=== PATIENT | male | born 1970 | race American Indian/Alaskan Native ===

== ENCOUNTER 2018-08-14 05:20 | Emergency (ER) | payer MEDICAID ==
[2018-08-14 06:42] LABS: CHLORIDE,CL 70 mmol/L (101-111)
[2018-08-14 06:48] LABS: ANION GAP 25.4; SODIUM,NA 112 mmol/L (135-145)
[2018-08-14] MEDS ORDERED: Potassium Chloride 20 MEQ in Premix Bag 1 BAG IV ONE (07:02)
--- NOTE | 2018-08-14 07:11 | EDM.PDOC ---
"ED HPI GENERAL MEDICAL PROBLEM - General Chief Complaint: Neurological Problem Stated Complaint: AMBULANCE/UNKNOWN Time Seen by Provider: 08/14/18 05:30 Source of Information: Reports: Patient, EMS, Family History Limitations: Reports: Altered Mental Status - History of Present Illness INITIAL COMMENTS - FREE TEXT/NARRATIVE: ED via [facility] with report of seizure. No prior hx. Patient reported to have recent cold sx, vomiting past few days. Weak. assisting into bed and stiffened up, lasted approximately 30 seconds. EMS noted postictal state on arrival. Confusion improving enroute. Patient alert, oreiented person pace on arrival, slow responses - Related Data Allergies Allergy/AdvReac Type Severity Reaction Status Date / Time No Known Allergies Allergy Verified 08/14/18 05:30 Home Meds: Home Meds Lisinopril 20 mg PO DAILY 08/14/18 [History] metFORMIN [Glucophage] 850 mg PO WITHDINNER 08/14/18 [History] traZODone HCl [Trazodone HCl] 50 mg PO DAILY 08/14/18 [History] Past Medical History Cardiovascular History: Reports: Hypertension Endocrine/Metabolic History: Reports: Diabetes, Type II Social & Family History - Tobacco Use Smoking Status *Q: Never Smoker Second Hand Smoke Exposure: No - Recreational Drug Use Recreational Drug Use: No ED ROS GENERAL - Review of Systems Review Of Systems: ROS reveals no pertinent complaints other than HPI. Constitutional: Reports: Weakness HEENT: Reports: No Symptoms Respiratory: Reports: Shortness of Breath, Cough Cardiovascular: Reports: Dyspnea on Exertion Endocrine: Reports: Fatigue GI/Abdominal: Reports: Vomiting Musculoskeletal: Reports: Foot Pain, Muscle Pain Skin: Reports: No Symptoms Neurological: Reports: Seizure, Difficulty Walking (past 2-3 weeks), Weakness - Physical Exam Exam: See Below Exam Limited By: No Limitations General Appearance: Alert, Mild Distress, Obese Eye Exam: Bilateral Eye: EOMI Ears: Normal External Exam, Normal TMs Nose: Normal Inspection Throat/Mouth: Evidence of Tongue Biting. No: Normal Lips (bruising lower left ) Neck: Normal Inspection, Supple, Full Range of Motion Respiratory/Chest: No Respiratory Distress, Lungs Clear, Decreased Breath Sounds , Wheezing (intermittent, left upper clears with cough) Cardiovascular: Normal Peripheral Pulses, Regular Rate, Rhythm, No Edema GI/Abdominal: Normal Bowel Sounds, Soft Neuro Exam (Abbreviated): Alert, Oriented, Normal Cognition, Slow to Respond Extremities: Pallor. No: Pedal Edema Skin Exam: Warm, Dry, Intact, Pallor Course - Vital Signs Last Recorded V/S: Last Vital Signs Temp 97.3 F 08/14/18 05:21 Pulse 89 08/14/18 05:21 Resp 18 08/14/18 05:21 BP 162/93 H 08/14/18 05:21 Pulse Ox 94 L 08/14/18 05:21 - Orders/Labs/Meds Orders: Active Orders 24 hr Category Date Time Status EKG Documentation Completion [RC] URGENT Care 08/14/18 05:14 Active Labs: Laboratory Tests 08/14/18 08/14/18 08/14/18 Range/Units 06:15 06:15 06:15 WBC 5.4 (5.0-10.0) 10^3/uL RBC 4.46 L (4.6-6.2) 10^6/uL Hgb 13.2 L D (14.0-18.0) g/dL Hct 35.8 L (40.0-54.0) % MCV 80.3 D (80-100) fL MCH 29.6 (27.0-34.0) pg MCHC 36.9 H (33.0-35.0) g/dL Plt Count 25 L* D (150-450) 10^3/uL Neut % (Auto) 88.8 H (42.2-75.2) % Lymph % (Auto) 7.2 L (20.5-50.1) % [place] % (Auto) 3.6 (2-8) % Eos % (Auto) 0.0 L (1.0-3.0) % Baso % (Auto) 0.4 (0.0-1.0) % PT 16.0 H (9.0-12.0) SEC INR 1.6 H (0.9-1.2) Sodium 112 L* D (135-145) mmol/L Potassium 2.4 L D (3.6-5.0) mmol/L Chloride 70 L D (101-111) mmol/L Carbon Dioxide 19.0 L (21.0-31.0) mmol/L Anion Gap 25.4 BUN 3 L (7-18) mg/dL Creatinine 0.7 (0.6-1.3) mg/dL Est Cr Clr Drug Dosing 141.65 mL/min Estimated GFR (MDRD) > 60 BUN/Creatinine Ratio 4.28 Glucose 301 H (74-105) mg/dL Calcium 7.3 L D (8.4-10.2) mg/dl Total Bilirubin 5.7 H (0.2-1.0) mg/dL AST 270 H (10-42) IU/L ALT 84 H (10-60) IU/L Alkaline Phosphatase 334 H (42-121) IU/L Troponin I 0.18 H* (0.00-0.02) ng/ml Total Protein 7.2 (6.7-8.2) g/dl Albumin 2.2 L (3.2-5.5) g/dl Globulin 5.0 Albumin/Globulin Ratio 0.44 Amylase 28 (28-100) U/L Meds: Medications Discontinued Medications Generic Name Dose Route Start Last Admin Trade Name Freq PRN Reason Stop Dose Admin Potassium Chloride 20 meq/ 100 mls @ 50 mls/hr 08/14/18 07:02 08/14/18 07:09 Premix IV 08/14/18 09:01 50 mls/hr ONETIME ONE Administration - Radiology Interpretation Free Text/Narrative:: [facility] Final Radiology Report Call: [phone] assistance Online chat: [email or web address] Name: MARYLIN CANO Age: 48Years M Date: 08/14/2018 SSN: -- : 1970 Study: CT HEAD WO Requesting Physician: MARY THOMPSON Images: 149 Addl Studies: Provided Clinical History: Contrast: Without Contrast Medium: Contrast Amount: Contrast Method: Page 1 of 2 EXAM: CT Head Without Contrast EXAM DATE/TIME: 08/14/2018 5:41 AM CLINICAL HISTORY: 48 years old, male; Signs and symptoms; Other: Seizure TECHNIQUE: Axial computed tomography images of the head/brain without contrast. All CT scans at this facility use at least one of these dose optimization techniques: automated exposure control; mA and/or kV adjustment per patient size (includes targeted exams where dose is matched to clinical indication); or iterative reconstruction. Coronal and sagittal reformatted images were created and reviewed. COMPARISON: No relevant prior studies available. FINDINGS: Brain: No CT evidence of acute cortical infarct. No mass effect. No edema. Old lacunar infarct lateral right thalamus. There is no evidence of parenchymal hemorrhage. No extra -axial collections. No subarachnoid blood. Ventricles: The ventricular system is midline and appropriate in size. No hydrocephalus. Bones/joints: There is no evidence of acute fracture. Sinuses: Prominent mucosal changes in the left maxillary sinus. Mild mucosal changes in the right maxillary sinus. Please correlate clinically. Mastoid air cells: Imaged portions of the mastoid air cells are aerated. Mastoids are free of acute inflammatory change. Orbits: No suspicious orbital mass. Soft tissues: No large soft tissue superficial hematoma. Please correlate clinically. MARYLIN CANO | Final Radiology Report CONFIDENTIALITY STATEMENT This report is intended only for use by the referring physician, and only in accordance with law. If you received this in error, call [phone]. Page 2 of 2 Vasculature: There are atherosclerotic changes within the anterior and posterior circulations. IMPRESSION: No evidence of an acute intracranial injury. No intracranial hemorrhage. No evidence of acute cortical infarct. Old lacunar infarct lateral right thalamus. No mass effect. No edema. Followup as clinically warranted. Prominent mucosal changes in the left maxillary sinus. Mild mucosal changes in the right maxillary sinus. Please correlate clinically. Nonemergent/chronic findings as described in the body of report. Thank you for allowing us to participate in the care of your patient. Name: MARYLIN CANO Age: 48Years M Date: 08/14/2018 SSN: -- : 1970 Study: XR CHEST 1 VIEW Requesting Physician: MARY THOMPSON Images: 1 Addl Studies: Provided Clinical History: Contrast: Contrast Medium: Contrast Amount: Contrast Method: Page 1 of 2 EXAM: XR Chest, 1 View EXAM DATE/TIME: 08/14/2018 5:34 AM CLINICAL HISTORY: 48 years old, male; Signs and symptoms; Other: Seizure TECHNIQUE: XR of the chest, 1 view. COMPARISON: No relevant prior studies available. FINDINGS: Lungs: No consolidation. Scar or hypoventilatory change at the right base. Pleural space: No evidence of significant pleural effusion. There is no evidence of pneumothorax. Heart/Mediastinum: The tracheal air column is near midline. The cardiac silhouette is normal. Upper abdomen: Elevated right hemidiaphragm. Bones/joints: Previous median sternotomy. There is no evidence of acute fracture. IMPRESSION: Previous median sternotomy. Elevated right hemidiaphragm. Scar or hypoventilatory change at the right base. No consolidation. No significant effusion. No acute fracture. Thank you for allowing us to participate in the care of your patient. - Re-Assessments/Exams Free Text/Narrative Re-Assessment/Exam: 08/14/18 07:25 Dr Max Newberry accepting patient, further eval and management seizure, hyponatremia, weakness, hypokalemia, Elevated LFT's vomiting. 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 Diabetes mellitus complication status: with unspecified complications Qualified Code(s): E11.8 - Type 2 diabetes mellitus with unspecified complications Liver failure Qualifiers: Liver failure chronicity: unspecified chronicity Hepatic coma status: without hepatic coma Qualified Code(s): K72.90 - Hepatic failure, unspecified without coma Myocardial infarct Qualifiers: Myocardial infarction type: unspecified Involved coronary artery: unspecified coronary artery Qualified Code(s): I21.9 - Acute myocardial infarction, unspecified - Discharge Information *PRESCRIPTION DRUG MONITORING PROGRAM REVIEWED*: No *COPY OF PRESCRIPTION DRUG MONITORING REPORT IN PATIENT CASSI: Not Applicable Forms: ED Department Discharge - My Orders Last 24 Hours: My Active Orders 08/14/18 05:14 EKG Documentation Completion [RC] URGENT - Assessment/Plan Last 24 Hours: My Active Orders 08/14/18 05:14 EKG Documentation Completion [RC] URGENT"
== END 2018-08-14 07:50 ==
LOC: DL.ED 05:20
DX: R56.9 Unspecified convulsions (principal); K72.90 Hepatic failure, unspecified without coma; E11.8 Type 2 diabetes mellitus with unspecified complications; E87.1 Hypo-osmolality and hyponatremia; E87.6 Hypokalemia; I21.9 Acute myocardial infarction, unspecified; I10 Essential (primary) hypertension
CPT/HCPCS: 36415; 70450; 71045; 80053; 82150; 84484; 85025; 85610; 93005; 96365; 99285; J3480

== ENCOUNTER 2019-05-06 12:57 | Emergency (ER) | payer SELFPAY ==
[2019-05-06] MEDS ORDERED: EPINEPHrine 1:10,000 1 MG/10 ML Syringe IV ONE (12:58)
--- NOTE | 2019-05-06 13:31 | EDM.PDOC ---
ED HPI GENERAL MEDICAL PROBLEM - General Chief Complaint: CPR in Progress Stated Complaint: CODE BLUE Time Seen by Provider: 05/06/19 12:58 Source of Information: Reports: EMS, Family, Old Records, RN, RN Notes Reviewed History Limitations: Reports: Other (DOA) - History of Present Illness INITIAL COMMENTS - FREE TEXT/NARRATIVE: 48yr old male found down in house, by and family after they had been out shopping for approx. half an hour. Pt was awake and talking when they left to the store. When they returned to to the house they found the pt unresponsive, cold to the touch, and could not find a pulse. The called 911, but no bystander CPR was initiated until the EMS crew arrived. Family states the pt has Hx of CAD s/p one [place], and alcoholic liver disease but still drinks heavily. They report the pt has been yellowish for some time now and that he has been vomiting black emesis smelled bloody, but he had not sought medical attention for it. He was vomiting black and bloody material earlier today according to his . EMS reports finding the pt unresponsive and in asystole. They began CPR, obtained an external jugular IV and IO, intubated the pt, and gave Epinephrine 1mg IVP x3 doses. The pt never responded and remained in asystole until arrival to the ER. Unknown total down time, but based on the time the family left the house, it could not have been more than 55 minutes including the EMS scene, and transport time. Pt arrived cold, mottled, jaundiced, with dark blood from the mouth and nose, CPR in progress. Epinephrine 1mg IVP and 1 minute of CPR was performed after which the pt remained without a pulse, and asystole was confirmed in 2 leads. Resuscitation efforts were obviously futile, and CPR was ordered discontinued by me. Pt was essentially a D.O.A. TIME OF : 13:01 HRS Family including were present and notified of the pt's . Annette Holland RN notified Dr. Colin, Service Worker. Family wishes to use [facility]. Onset: Today, Unknown/Unsure - Related Data Allergies Allergy/AdvReac Type Severity Reaction Status Date / Time No Known Allergies Allergy Verified 08/14/18 05:30 Home Meds: Home Meds Lisinopril 20 mg PO DAILY 08/14/18 [History] metFORMIN [Glucophage] 850 mg PO WITHDINNER 08/14/18 [History] traZODone HCl [Trazodone HCl] 50 mg PO DAILY 08/14/18 [History] Past Medical History Cardiovascular History: Reports: CAD, Hypertension, [place] Gastrointestinal History: Reports: Cirrhosis, GI Bleed Psychiatric History: Reports: Addiction (Alcohol) Endocrine/Metabolic History: Reports: Diabetes, Type II, Obesity/BMI 30+ Social & Family History - Family History Family Medical History: Unobtainable - Alcohol Use Alcohol Use History: Yes Alcohol Use in Last Twelve Months: Yes Alcohol Use Comment: Heavy chronic alcohol consumption per family. - Living Situation & Occupation Living situation: Reports: , with Family ED ROS GENERAL - Review of Systems Review Of Systems: Unable To Obtain ED EXAM, CPR - Physical Exam Exam: See Below Text/Narrative:: See initial note. Limited By: Unresponsive General Appearance: Obese Eye Exam: Bilateral Eye: Other (fixed and dilated) Nose: Other (Dried dark, blackish nasal blood) Throat/Mouth: Perioral Cyanosis, Other (Dried and clotted dark blood at lips.) Head: Atraumatic, Normocephalic Respiratory Chest: Other (Intubated, bag-valve mask vent. w/course B/L breath sounds. No spontaneous resp. effort.) Cardiovascular: Other (No pulse during CPR pauses.) GI/Abdominal Exam: Soft, Distended (Male) Exam: Other (Recently incontinent of urine) 0: Right Carotid, Left Carotid, Radial (R), Radial (L), Femoral (R), Femoral (L) Neurological: Unresponsive Skin Exam: Cool, Cyanosis, Jaundice, Tattoo(s) Departure - Departure Time of Disposition: 13:01 Disposition: 20 Clinical Impression: Cardiac arrest, Upper GI hemorrhage, History of cirrhosis, History of alcohol abuse, History of type 2 diabetes mellitus - Discharge Information *PRESCRIPTION DRUG MONITORING PROGRAM REVIEWED*: No *COPY OF PRESCRIPTION DRUG MONITORING REPORT IN PATIENT CASSI: No Forms: ED Department Discharge
== END 2019-05-06 14:35 | disposition expired ==
LOC: DL.ED 12:57
DX: I46.9 Cardiac arrest, cause unspecified (principal); K92.2 Gastrointestinal hemorrhage, unspecified; E11.9 Type 2 diabetes mellitus without complications; F10.21 Alcohol dependence, in remission; I10 Essential (primary) hypertension; I25.10 Atherosclerotic heart disease of native coronary artery without angina pectoris; I25.2 Old myocardial infarction; Z87.19 Personal history of other diseases of the digestive system; E66.9 Obesity, unspecified; Z79.84 Long term (current) use of oral hypoglycemic drugs; Z79.899 Other long term (current) drug therapy
CPT/HCPCS: 92950; 96374; 99285; J0171; 99283